=== PATIENT | female | born 1995 | race American Indian/Alaskan Native ===

== ENCOUNTER 2017-09-09 00:17 | Emergency (ER) | payer OTHER ==
[2017-09-09] MEDS ORDERED: TYLENOL PO ONE (04:44)
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
[2017-09-09 05:02] VITALS: BP 117/59
== END 2017-09-09 05:02 | disposition home or self-care (01) ==
LOC: ED 00:17
DX: M54.6 Pain in thoracic spine (principal); Z90.49 Acquired absence of other specified parts of digestive tract; V89.2XXA Person injured in unspecified motor-vehicle accident, traffic, initial encounter